=== PATIENT | male | born 1975 | race Caucasian/White ===

== ENCOUNTER → 2017-06-22 | Outpatient (CLI) | payer OTHER ==
[~2017-06-22] MED LIST: CEPHALEXIN500 M1 PO; LORTAB 5/500 501 TAB PO; NO HOME MEDICATIONS; PHENERGAN/CODEIN1 ML PO; ZITHROMAX250 MG PO
== END ==
LOC: COL.RAD 07:30
DX: S89.91XD Unspecified injury of right lower leg, subsequent encounter (principal); M94.8X8 Other specified disorders of cartilage, other site; Z96.7 Presence of other bone and tendon implants; Z98.890 Other specified postprocedural states

== ENCOUNTER 2019-04-09 01:13 | Emergency (ER) | payer BC ==
[~2019-04-09] VITALS: Ht 182.9 cm; Wt 109.1 kg
[2019-04-09 01:21] VITALS: BP 152/84; TEMP 99.9
[2019-04-09 01:38] LABS: STREP SCREEN POSITIVE
[2019-04-09] MEDS ORDERED: AMOXICILLIN 50500 MG PO (02:07)
[2019-04-09 02:22] VITALS: PULSE 90
== END 2019-04-09 02:22 | disposition home or self-care (01) ==
LOC: COL.ER 01:13
PROVIDERS: Emergency Medicine
DX: J02.0 Streptococcal pharyngitis (principal); E11.9 Type 2 diabetes mellitus without complications; Z87.891 Personal history of nicotine dependence; Z88.5 Allergy status to narcotic agent